=== PATIENT | male | born 1995 | race Two or more races ===

== ENCOUNTER 2018-03-09 14:30 | Outpatient (RCR) | payer OTHER, SELFPAY ==
--- NOTE | 2018-02-13 15:42 | HP.PTEVAL ---
Patient's Visit Information SUJEY POOLE is a 22 year old M referred to Physical Therapy by Anette Stock with a diagnosis of S/P injury to left shoulder and clavicle, thoracic back pain, chest myalgia. Date of Evaluation: 02/13/18 Physical Therapist: Crow Jorgensen PT, - Visit Plan Frequency: 2x /Week Duration: 4 Weeks Plan: Start with rotator cuff scapulothoracic strengthening program. Mobility work for thoracic spine. Manual work to improve thoracic mobility. Modalities prn. Monitor scapula symptoms, may benefit from MDT assessment in future. Precaution: pt does demonstrate hypermobilty of GH joint, avoid overstressing anterior capsule (90/90 positions or horizontal abduction past neutral). - Subjective Subjective: Pt is 22 y/o male referred for s/p injury to left shoulder and clavicle, thoracic back pain, chest myalgia. Pt reports that he had a shoulder injury about 3 years ago when playing lacrosse. He describes a [place] [place]. He reports L shoulder pain in anterior and posterior aspects. He also notes L scapula pain when he sits for a long time that started in the past year, describes this as tight and sometimes achy. He does feel that he will occationally sublux his shoulder when playing intermural sports or when he is working out, this does reduce on it's own. Denies n/t in UEs. Aggrevating factors: sleeping on L side, overhead activities, golfing, benching. Easing factors: sitting upright, IBU Occupation: student at [employer] - Pain L shoulder Pain Intensity (Out of 10): 0 Pain Intensity Range: 6 Thoracic Pain Intensity (Out of 10): 0 Pain Intensity Range: 6 - Objective OBSERVATION: flexed sitting posture, L winging scapula. PALPATION: No tenderness to palpation at GH joint. mild tenderness in L thoracic paraspinals. ROM: R shoulder AROM WNL. L shoulder AROM elevation WNL, abduction 120 degrees with pain, functional ER WNL, functional IR T12 with pain. B shoulder PROM full, B ER PROM hypermobile. Cervical flexion full but scapula pain with OP, extension 50%, B rotation WNL. STRENGTH: B shoulder gross strength 5/5, pain with resisted L abduction. L serratus anterior 4/5. ASSESSORY MOTION: Hypermobile B GH posterior/anterior glides. Thoracic central PA hypomobile and painful T6-9. - Special Tests L Shoulder Empty Can - SS: Positive L Shoulder Neer - Impingement: Positive L Shoulder [place] Aashish - Impingement: Positive L Shoulder Biceps Load Test - Labrum: Negative L Shoulder Apprehension Test - Anterior Instability: Negative L Shoulder Sulcus Sign - Inferior Laxity: Negative Comments: L crank test (-) - Goals Goal 1:: Pt will demonstrate full L shoulder active abduction and painfree functional IR to improve tolerance with self care activites. Goal Time Frame: 4-6 Weeks Goal 2:: Pt will demonstrate upright sitting posture in clinic to improve tolerance with school related activities. Goal Time Frame: 4-6 Weeks Goal 3:: Pt will demonstrate scapulothoracic strength of 4+/5 to improve tolerance with overhead activities. Goal Time Frame: 4-6 Weeks Goal 4:: Pt will be independent with HEP to sustain gains made in the clinic. Goal Time Frame: 4-6 Weeks Goal 5:: Pt will report no limitation with participation with intermural sports or exercise routine. Goal Time Frame: 4-6 Weeks Goal 6:: Pt will have a 50% improvement in DASH score to improve L shoulder function and QOL. Goal Time Frame: 4-6 Weeks - Rehabilitation Potential Physical Therapy Diagnosis: Pt is a 22 year old male referred for S/P injury to left shoulder and clavicle, thoracic back pain, chest myalgia. He experience a L shoulder injury about 3 years ago and now has associated L scapula and thoracic pain. On exam, he exhibits B GH joint hypermobility, scapulathoracic weakness, and decreased thoracic mobility. This limits his activty with prolonged sitting, overhead activities, and reaching behind his back. This affects his participation with intermural sports and school activities. Pt will benefit from skilled PT to address the mentioned impairments to maximize functional potential. Rehabilitation Potential: Excellent - Anticipated Interventions Patient/Client Instruction: Educate patient on: Condition, Plan of Care For the Purpose of:: To decrease pain, To increase ROM, To improve muscle performance and motor function, To increase tolerance to activity/condition/position, To improve ability of physical actions for home/community/work/leisure, To improve health of tissue, To decrease soft tissue restriction, To increase flexibility/ROM, To improve endurance, To reduce risk of recurrence, To improve health and function, To improve self management Therapeutic Exercise to Include: Strength training, Endurance training, Body mechanics, Postural training, Flexibilty training, Passive ROM, Active ROM, Scapular Strength/Stabilization For the Purpose of:: To decrease pain, To increase ROM, To improve muscle performance and motor function, To increase tolerance to activity/condition/position, To improve ability of physical actions for home/community/work/leisure, To improve health of tissue, To decrease soft tissue restriction, To increase flexibility/ROM, To reduce risk of recurrence, To improve self management, To prevent re-injury Manual Therapy Techniques to Include: Mobilization, Manipulation, Soft tissue mobilization For the Purpose of:: To decrease pain, To increase ROM, To improve muscle performance and motor function, To increase tolerance to activity/condition/position, To improve ability of physical actions for home/community/work/leisure, To increase flexibility/ROM, To improve endurance TENS: Yes IF ES: Yes Other electric stimulation: Yes Cryotherapy (ice pack, ice massage): Yes Thermo therapy (hot pack): Yes Ultrasound (thermal/non thermal): Yes For the Purpose of:: To decrease pain, To increase ROM, To improve muscle performance and motor function, To increase tolerance to activity/condition/position, To improve ability of physical actions for home/community/work/leisure, To decrease soft tissue restriction Thank you for the opportunity to evaluate your patient. For Medicare and Medicare HMO plans, please review the plan of care and approve it. It will need to be FAXED BACK to us at [phone] for Medicare purposes. Please let me know if there are questions or concerns regarding this plan of care. Physician Signature: Date:
--- NOTE | 2018-05-19 09:25 | HP.PT.NRP ---
HP - Discharge Summary (1) - Patient Information SUJEY POOLE was seen in my office for initial evaluation on 02/13/18. The following Plan of Care was established for this patient: Initial Frequency: 2x /Week Initial Duration: 4 Weeks - Anticipated Interventions Patient/Client Instruction: Educate patient on: Condition, Plan of Care For the Purpose of:: To decrease pain, To increase ROM, To improve muscle performance and motor function, To increase tolerance to activity/condition/position, To improve ability of physical actions for home/community/work/leisure, To improve health of tissue, To decrease soft tissue restriction, To increase flexibility/ROM, To improve endurance, To reduce risk of recurrence, To improve health and function, To improve self management Therapeutic Exercise to Include: Strength training, Endurance training, Body mechanics, Postural training, Flexibilty training, Passive ROM, Active ROM, Scapular Strength/Stabilization For the Purpose of:: To decrease pain, To increase ROM, To improve muscle performance and motor function, To increase tolerance to activity/condition/position, To improve ability of physical actions for home/community/work/leisure, To improve health of tissue, To decrease soft tissue restriction, To increase flexibility/ROM, To reduce risk of recurrence, To improve self management, To prevent re-injury Manual Therapy Techniques to Include: Mobilization, Manipulation, Soft tissue mobilization For the Purpose of:: To decrease pain, To increase ROM, To improve muscle performance and motor function, To increase tolerance to activity/condition/position, To improve ability of physical actions for home/community/work/leisure, To increase flexibility/ROM, To improve endurance TENS: Yes IF ES: Yes Other electric stimulation: Yes Cryotherapy (ice pack, ice massage): Yes Thermo therapy (hot pack): Yes Ultrasound (thermal/non thermal): Yes For the Purpose of:: To decrease pain, To increase ROM, To improve muscle performance and motor function, To increase tolerance to activity/condition/position, To improve ability of physical actions for home/community/work/leisure, To decrease soft tissue restriction This patient was last seen in our office 03/09/18. Pertinent comments regarding their Physical therapy will appear below: This patient seen for PT for shoulder pain with PT interventions for strengthening shoulder,rtc/scapular thoracic spine,ROM ,POSTURAL EX'S. Patient made progress with improving strength and function with less pain thus d/c At this point I will be discontinuing this patient from physical therapy. I would be happy to see this patient again in the future if found appropriate by the physician. Thank you! Crow Jorgensen, PT,
== END 2018-03-09 19:00 | disposition home or self-care (01) ==
LOC: PT 14:30
PROVIDERS: Family Provider Family Medicine; PCP Family Medicine; Visit Provider Nurse Practitioner Adult Health
DX: M54.6 Pain in thoracic spine (principal); M79.1 Myalgia
CPT/HCPCS: 97110; 97162

== ENCOUNTER → 2019-03-01 07:32 | Outpatient (CLI) | payer OTHER, SELFPAY ==
[2017-09-15 15:45] VITALS: BMI 23.0
[2019-03-01 08:33] LABS: Absolute Lymphocyte Count 2.64 X10^3/uL (0.83-4.51); Absolute Neutrophil Count 3.2 X10^3/uL (2.0-7.7); Basophil# 0.04 X10^3/uL; Basophil% 0.6 % (0-1); Eosinophil# 0.28 X10^3/uL; Eosinophils% 4.1 % (0-5); Hematocrit 47.7 % (40-54); Hemoglobin 15.7 g/dL (13.0-16.5); Lymphocyte # 2.64 X10^3/ul (4.0); Lymphocyte % 38.5 % (19-41); Mean Corp Hgb Conc 32.9 g/dL (32-36); Mean Corpuscular Hgb 26.8 pg (27.0-32.0); Mean Corpuscular Volume 81.5 fL (80-94); Mean Platelet Vol. 10.9 fl (6.2-12.0); Monocyte# 0.71 X10^3/uL; Monocyte% 10.4 % (0-10); NRBC Flagged by Analyzer 0 % (0-5); Neutrophil # 3.17 X10^3/uL (2.7-7.7); Neutrophil % 46.3 % (47-70); Platelet Count 253 K/mm3 (150-450); RBC Distribution Width CV 13.3 % (11.6-14.6); RBC Distribution Width SD 39.3 fl (35.1-43.9); Red Blood Count 5.85 M/mm3 (4.6-6.2); White Blood Count 6.9 K/mm3 (4.4-11.0)
[2019-03-01 08:56] LABS: ALB/GLOB Ratio 0.9 RATIO (0.9-2.4); AST(SGOT) 19 U/L (15-37); Alanine Aminotransfer ALT/SGPT 23 U/L (16-61); Albumin, Serum 3.8 g/dL (3.2-5.0); Alkaline Phosphatase 83 U/L (45-117); Anion Gap 6 (5-15); BUN 16 mg/dL (7-18); BUN/Creat Ratio 14.7 RATIO (10-20); Calcium,Total 8.8 mg/dL (8.5-10.1); Chloride 105 mmol/L (98-107); Cholesterol 146 mg/dL (200); Creatinine, Serum 1.09 mg/dL (0.70-1.30); EST Glomerular Filtration Rate 90 mL/min (>60); Est Glom Filt Rate - Afr Amer 108 mL/min (>60); Globulin 4.2 g/dL (2.2-4.2); Glucose 108 mg/dL (74-106); High Density Lipoprotein 39 mg/dL; Potassium 3.9 mmol/L (3.5-5.1); Sodium Level 138 mmol/L (136-145); Triglycerides 246 mg/dL; Very Low Density Lipoprotein 49 mg/dL (5-40)
[2019-03-01 08:59] LABS: Hemoglobin A1c 5.7 % (4.2-6.3)
[2019-03-04 16:07] LABS: Immunoglobulin A 392 mg/dL (90-386); Immunoglobulin G 1193 mg/dL (700-1600); Immunoglobulin M 63 mg/dL (20-172)
[2019-03-05 03:06] LABS: Alternaria tenuis 0.17 kU/L (Class 0/I); Aspergillus fumigatus 0.38 kU/L (Class I); Birch >100 kU/L (Class VI); Cladosporium herbarum 0.16 kU/L (Class 0/I); Dog Epithelia 3.15 kU/L (Class III); Immunoglobulin E 1964 IU/mL (6-495); Oak, White >100 kU/L (Class VI); Penicillium Notatum 0.23 kU/L (Class 0/I); Timothy Grass >100 kU/L (Class VI)
[2019-03-05 11:29] LABS: Mouse Urine 0.16 kU/L (Class 0/I)
[2019-03-05 12:01] LABS: Immunoglobulin E 2077 IU/mL (6-495)
== END ==
PROVIDERS: Family Provider Family Medicine; PCP Family Medicine; Referring Provider Family Medicine; Visit Provider Family Medicine
DX: R01.1 Cardiac murmur, unspecified (principal); T78.40XA Allergy, unspecified, initial encounter; Z83.3 Family history of diabetes mellitus
CPT/HCPCS: 36415; 80053; 80061; 82784; 82785; 83036; 85025; 86003

== ENCOUNTER 2019-03-15 17:00 | Outpatient (RCR) | payer OTHER, SELFPAY ==
[2017-09-15 15:45] VITALS: BMI 23.0
--- NOTE | 2019-03-07 11:15 | HP.PTEVAL_ITS ---
Patient's Visit Information SUJEY POOLE is a 23 year old M referred to Physical Therapy by Darrell Trejo MD with a diagnosis of Left Leg Pain- LLD. Date of Evaluation: 03/07/19 Physical Therapist: Augustina Bhatt DPT - Visit Plan Frequency: 1x/Week Duration: 3 Weeks Plan: Orthotics - Subjective Findings: Patient reports that he went to his physical with his PCP who measured 1 cm off on the left LLD. Recommended orthotics. No pain at this point but has more sensations in his left LE than his right. Feels like its working harder. Has had orthotics prior-made here- a long time ago. Works out 3x a week- running, lifting (machines/free weight), and core work. Has discomfort in his back on the left and MD thinks that having orthotics made will help. Plans to put them in tennis shoes- currently wearing [employer] shoes. PMHx: stress fracture in left leg- 6 years ago- no problems since Meds: none. Just finished school and is applying for grad school- PT, biomedical engineering. - Objective Posture: FH, RS- does correct with VCs but does not maintain. Gait: mild pes planus Left>Right. HR/TR: WNL. SLS: 30 sec but does have increased muscle activation and mild pes planus. ROM: WFL. Strength: Core: fair, Hip: 4+/5 throughout Knee: 5/5, Ankle: 5/5. Special Test: Pelvic Alignment:no deviation. LLD: negative- double checked by PT CS - Goals Goal 1:: Patient will be I with orthotic mgmt Goal Time Frame: 4-6 Weeks - Rehabilitation Potential Physical Therapy Diagnosis: Patient presents with pes planus leading to increased valgus at the knee. Rehabilitation Potential: Excellent - Anticipated Interventions Patient/Client Instruction: Educate patient on: Benefits of Fitness Program Orthotics: Shoe insert Thank you for the opportunity to evaluate your patient. For Medicare and Medicare HMO plans, please review the plan of care and approve it. It will need to be FAXED BACK to us at [phone] for Medicare purposes. For Medicare only, by signing this I certify the plan of care. Please let me know if there are questions or concerns regarding this plan of care. Physician Signature: Date:
--- NOTE | 2019-03-15 17:34 | HP.PTDCSUM ---
HP - PT D/C Summary It has been my pleasure to treat SUJEY POOLE under orders from Darrell Trejo MD, for the diagnosis of Left Leg Pain- LLD for a total of 2 visit(s). Discharge Date: Please see the following information for a summary of their discharge status. - Subjective Subjective: No pain currently - Objective Objective/Function: Pt is now I with orthotic care. - Goals Goal 1:: Patient will be I with orthotic mgmt Goal Progress: Goal Met - Plan Plan: Discharge - D/C Information If there are questions or concerns regarding this patient's physical therapy, please feel free to call me at [phone]. Thank you for the referral of this patient. Sincerely, Nnamdi Mayorga, PT, ATC
== END 2019-03-15 19:00 | disposition home or self-care (01) ==
LOC: PT 17:00
PROVIDERS: Family Provider Family Medicine; PCP Family Medicine; Referring Provider Family Medicine; Visit Provider Family Medicine
DX: M21.70 Unequal limb length (acquired), unspecified site (principal); M79.605 Pain in left leg
CPT/HCPCS: 97161; 97760; 97763

== ENCOUNTER → 2019-10-05 08:34 | Outpatient (CLI) | payer OTHER, SELFPAY ==
[2017-09-15 15:45] VITALS: BMI 23.0
[2019-10-05 10:21] LABS: Absolute Lymphocyte Count 2.43 X10^3/uL (0.83-4.51); Absolute Neutrophil Count 1.7 X10^3/uL (2.0-7.7); Basophil# 0.02 X10^3/uL; Basophil% 0.4 % (0-1); Eosinophil# 0.16 X10^3/uL; Eosinophils% 3.3 % (0-5); Hematocrit 46.9 % (40-54); Hemoglobin 15.4 g/dL (13.0-16.5); Lymphocyte # 2.43 X10^3/ul (4.0); Lymphocyte % 50.6 % (19-41); Mean Corp Hgb Conc 32.8 g/dL (32-36); Mean Corpuscular Hgb 26.7 pg (27.0-32.0); Mean Corpuscular Volume 81.4 fL (80-94); Monocyte# 0.48 X10^3/uL; NRBC Flagged by Analyzer 0 % (0-5); Neutrophil % 35.5 % (47-70); Platelet Count 229 K/mm3 (150-450); RBC Distribution Width CV 12.8 % (11.6-14.6); RBC Distribution Width SD 37.5 fl (35.1-43.9); Red Blood Count 5.76 M/mm3 (4.6-6.2); White Blood Count 4.8 K/mm3 (4.4-11.0)
[2019-10-05 10:37] LABS: AST(SGOT) 19 U/L (15-37); Alanine Aminotransfer ALT/SGPT 25 U/L (16-61); Albumin, Serum 4.3 g/dL (3.2-5.0); Alkaline Phosphatase 77 U/L (45-117); Anion Gap 6 (5-15); BUN 12 mg/dL (7-18); BUN/Creat Ratio 12.3 RATIO (10-20); CRP < 2.90 mg/L (0.0-3.0); Calcium,Total 9.3 mg/dL (8.5-10.1); Chloride 103 mmol/L (98-107); Creatinine, Serum 0.97 mg/dL (0.70-1.30); EST Glomerular Filtration Rate 102 mL/min (>60); Est Glom Filt Rate - Afr Amer 123 mL/min (>60); Globulin 4.3 g/dL (2.2-4.2); Glucose 95 mg/dL (74-106); Potassium 4.1 mmol/L (3.5-5.1); Protein, Total 8.6 g/dL (6.4-8.2); Sodium Level 137 mmol/L (136-145)
[2019-10-06 17:08] LABS: ANTINUCLEAR ANTIBODIES DIRECT Negative (Negative)
[2019-10-10 03:06] LABS: Immunoglobulin A 435 mg/dL (90-386); Immunoglobulin E 854 IU/mL (6-495); Immunoglobulin G 1434 mg/dL (700-1600)
[2019-10-10 11:35] LABS: Immunoglobulin M 69 mg/dL (20-172)
== END ==
PROVIDERS: PCP Family Medicine; Referring Provider Family Medicine; Visit Provider Family Medicine
DX: L63.9 Alopecia areata, unspecified (principal)
CPT/HCPCS: 36415; 80053; 82784; 82785; 85025; 86038; 86140

== ENCOUNTER → 2022-03-11 | Outpatient (CLI) | payer OTHER, SELFPAY ==
[2022-03-11 12:50] LABS: Hepatitis B Surface Antibody Non-Reactive
[2022-03-16 11:08] LABS: QNTFERON TB Mitogen Value > 10.00 IU/mL (.); QNTFERON TB Nil Value 0 IU/mL (.); QNTFERON TB1+ Ag Value 0.05 IU/mL (.); QNTFERON TB2+ Ag Value 0.02 IU/mL (.)
[2022-03-16 16:08] LABS: QNTIFERON TB Positive Criteria Negative (Negative)
== END | disposition home or self-care (01) ==
LOC: MFPLAB 10:44
PROVIDERS: PCP Family Medicine; Referring Provider Family Medicine; Visit Provider Family Medicine
DX: Z00.00 Encounter for general adult medical examination without abnormal findings (principal)
CPT/HCPCS: 36415; 86480; 86706